=== PATIENT | female | born 1945 | race Caucasian/White ===

== ENCOUNTER → 2018-01-22 16:59 | Outpatient (CLI) | payer MEDICARE ==
[2018-01-22 17:24] LABS: BASOPHILS 0.9 % (0-2); HEMATOCRIT 42.4 % (36.0-48.0); IMMATURE GRANULOCYTES 0.1 % (0-5); LYMPHOCYTES 30.5 % (15-50); MCH 28.7 pg (26.0-34.0); MCV 86.9 fL (80.0-100.0); MEAN PLATELET VOLUME 11.2 fL (7.4-10.4); MONOCYTES 6.9 % (2-11); NEUTROPHILS 58.6 % (40-80); PLATELET COUNT 259 10x3/uL (130-400); RBC 4.88 10x6/uL (4.00-5.40); WBC 9.3 10x3/uL (4.8-10.8)
[2018-01-22 17:40] LABS: ALBUMIN 4.2 g/dL (3.4-5.0); ANION GAP 12.8 mmol/L (8-16); BILIRUBIN - TOTAL 0.51 mg/dL (0.2-1.3); CALCIUM 9.3 mg/dL (8.5-10.1); CARBON DIOXIDE 31.9 mmol/L (21.0-32.0); CREATININE - SERUM 0.9 mg/dL (0.6-1.3); POTASSIUM - SERUM 3.7 mmol/L (3.5-5.1); PROTEIN - SERUM 8.2 g/dL (6.4-8.2)
== END | disposition home or self-care (01) ==
LOC: D.LAB 16:59
PROVIDERS: Family Medicine
DX: E55.9 Vitamin D deficiency, unspecified (principal); I10 Essential (primary) hypertension; J44.9 Chronic obstructive pulmonary disease, unspecified; R60.9 Edema, unspecified